=== PATIENT | female | born 1990 | race Caucasian/White ===

== ENCOUNTER 2016-07-18 21:48 | Inpatient (IN) | payer BC ==
[~2016-07-18] VITALS: Ht 170.2 cm; Wt 51.7 kg
[2016-07-19] VITALS: BP 103/61; PULSE 82; RESP 18; Ht 170.2 cm; Wt 51.7 kg
[2016-07-19] MEDS ORDERED: ACETAMINOPHEN 325 MG TAB PO PRN (00:30)
[2016-07-19 02:18] LABS: ADD SCAN DIFF NO
[2016-07-19 02:20] LABS: BASOPHILS % 0.7 % (0.0-2.0); EOSINOPHILS # 0.2 10^3/ul (0.0-0.5); EOSINOPHILS % 3.2 % (0.0-7.0); HEMATOCRIT 37.5 % (37.0-47.0); HEMOGLOBIN 12.4 g/dl (12.0-16.0); LYMPHOCYTES # 2.1 10^3/ul (0.8-2.9); LYMPHOCYTES % 36.3 % (15.0-51.0); MEAN CORPUSCULAR HEMOGLOBIN 27.6 pg (29.0-33.0); MEAN CORPUSCULAR HGB CONC 33.1 g/dl (32.0-37.0); MEAN CORPUSCULAR VOLUME 83.3 fl (82.0-101.0); MEAN PLATELET VOLUME 10.1 fl (7.4-10.4); MONOCYTE # 0.5 10^3/ul (0.3-0.9); MONOCYTES % 7.6 % (0.0-11.0); NEUTROPHIL # 3.1 10^3/ul (1.6-7.5); NEUTROPHILS % 51.9 % (39.0-77.0); PLATELET COUNT 232 10^3/UL (140-415); RED CELL DISTRIBUTION WIDTH 12.6 % (11.5-14.5); WHITE BLOOD COUNT 5.9 10^3/ul (4.8-10.8)
[2016-07-19 02:37] LABS: ALBUMIN 4.1 g/dl (3.3-4.9)
[2016-07-19 02:38] LABS: POTASSIUM 3.4 mmol/L (3.5-5.1)
[2016-07-19 02:40] LABS: ALBUMIN/GLOBULIN RATIO 1.36; BILIRUBIN,INDIRECT 0.5 mg/dl (0-1.1); BILIRUBIN,TOTAL 0.5 mg/dl (0.2-1.3); CREATININE 0.76 mg/dl (0.44-1.00); TOTAL PROTEIN 7.1 g/dl (6.1-8.1)
[2016-07-19 02:41] LABS: CALCIUM 8.8 mg/dl (8.4-10.2); MAGNESIUM 1.9 mg/dl (1.7-2.5)
[2016-07-19] MEDS: ONDANSETRON 4 MG INJ IV PRN ×2 (03:23→18:19)
[2016-07-19] MEDS: PANTOPRAZOLE 40 MG INJ IV SCH (06:44)
[2016-07-19 08:01] VITALS: BP 90/50; RESP 18
--- NOTE | 2016-07-19 11:29 | CONS ---
Date/Time of Note Date/Time of Note DATE: 07/19/16 TIME: 11:17 Assessment/Plan Assessment/Plan Additional Assessment/Plan Assessment * Hematemesis * Depression Plan * EGD risks and benefit explained to patient and agreed with the planned procedure * PPI Consultation Date/Type/Reason Admit Date/Time July 18, 2016 at 23:34 Date of Consultation: July 19, 2016 Type of Consultation: Gastroenterology Reason for Consultation hematemesis Referring Provider: KYUNG LAMA Hx of Present Illness 25 year old female with history of depression ,transferred to our facility because of insurance issues from [facility] complaining of hematemesis.Present condition apparently started 3 days prior to admission as hematemesis approximately 1/3 glass,with associated vague abdominal pain.She claims that this started after starting taking Zoloft .She denies hematochezia, shortness of breath ,chest pain or bloating nor satiety. Present hemoglobin is 12.4,potassium 3.4,AST 21,ALT 31,alkaline phosphatase 36.No hematemesis nor abdominal pain Constitutional: improved, no complaints Eyes: no complaints ENT: no complaints Respiratory: no complaints Cardiovascular: no complaints Gastrointestinal: blood, flatus, nausea, vomiting Genitourinary: no complaints Musculoskeletal: no complaints Skin: no complaints Neurologic: no complaints Endocrine: no complaints Lymphatic: no complaints Psychological: nl mood/affect, no complaints Immunologic: no complaints Past Medical History Medical History: other (Depression) Past Surgical History Past Surgical Hx: no surgical history Family History Significant Family History: no pertinent family hx Social History Smoking Status: Never smoker Exam/Review of Systems Vital Signs Vitals Vital Signs Date Time Temp Pulse Resp B/P Pulse Ox O2 Delivery O2 Flow Rate FiO2 07/19/16 08:01 98.0 70 18 90/50 100 Intake and Output 07/18/16 07/18/16 07/19/16 15:00 23:00 07:00 Intake Total 480 ml Output Total 500 ml Balance -20 ml Exam Constitutional: alert, oriented, well developed Psych: nl mood/affect Head: atraumatic, normocephalic Eyes: PERRL, nl conjunctiva, nl sclera Neck: non-tender, supple Respiratory: clear to auscultation, normal air movement Cardiovascular: nl pulses, regular rate and rhythm Gastrointestinal: nl liver, spleen, non-tender, soft Musculoskeletal: nl extremities to inspection, nl gait and stance Extremities: normal pulses Neurological: nl mental status, nl speech, nl strength Skin: nl turgor, No rash or lesions Lymph: nl lymph nodes Results Result Diagram: 07/19/1615107/19/16151 Results 24 hrs Laboratory Tests Test 07/19/16 01:52 White Blood Count 5.9 Red Blood Count 4.50 Hemoglobin 12.4 Hematocrit 37.5 Mean Corpuscular Volume 83.3 Mean Corpuscular Hemoglobin 27.6 L Mean Corpuscular Hemoglobin Concent 33.1 Red Cell Distribution Width 12.6 Platelet Count 232 Mean Platelet Volume 10.1 Neutrophils % 51.9 Lymphocytes % 36.3 Monocytes % 7.6 Eosinophils % 3.2 Basophils % 0.7 Nucleated Red Blood Cells % 0.0 Neutrophils # 3.1 Lymphocytes # 2.1 Monocytes # 0.5 Eosinophils # 0.2 Basophils # 0.0 Nucleated Red Blood Cells # 0.0 Sodium Level 139 Potassium Level 3.4 L Chloride Level 110 Carbon Dioxide Level 26 Anion Gap 6 L Blood Urea Nitrogen 12 Creatinine 0.76 Glucose Level 88 Calcium Level 8.8 Phosphorus Level 3.5 Magnesium Level 1.9 Total Bilirubin 0.5 Direct Bilirubin 0.00 Indirect Bilirubin 0.5 Aspartate Amino Transf (AST/SGOT) 21 Alanine Aminotransferase (ALT/SGPT) 31 Alkaline Phosphatase 36 L Total Protein 7.1 Albumin 4.1 Globulin 3.00 Albumin/Globulin Ratio 1.36 Medications Medications Current Medications Ondansetron HCl (Zofran Inj) 4 mg Q6H PRN IV NAUSEA AND/OR VOMITING Last administered on 07/19/16 03:23; Admin Dose 4 MG; Start 07/19/16 at 00:30 Acetaminophen (Tylenol Tab) 650 mg Q6H PRN PO PAIN AND OR ELEVATED TEMP; Start 07/19/16 at 00:30 Pantoprazole (Protonix Iv) 40 mg DAILY@06 IV Last administered on 07/19/16 06: 44; Admin Dose 40 MG; Start 07/19/16 at 06:00 Morphine Sulfate (morphine) 2 mg Q4H PRN IV pain; Start 07/19/16 at 00:30 MONSE TROY MD July 19, 2016 11:27
[2016-07-19] MEDS ORDERED: POTASSIUM CHLORIDE 250 ML IVPB ONE (18:00)
[2016-07-19] MEDS: morphine 2 MG INJ IV PRN (18:19)
[2016-07-19 19:39] VITALS: BP 108/68; RESP 16
[2016-07-20] VITALS (14 sets, daily range): BP systolic 95–118; BP diastolic 52–67; PULSE 26–86; RESP 14–29
[2016-07-20] MEDS: morphine 2 MG INJ IV PRN (01:46)
[2016-07-20 05:18] LABS: ADD SCAN DIFF NO
[2016-07-20 05:22] LABS: BASOPHILS % 0.6 % (0.0-2.0); EOSINOPHILS # 0.2 10^3/ul (0.0-0.5); EOSINOPHILS % 2.9 % (0.0-7.0); HEMATOCRIT 37.1 % (37.0-47.0); HEMOGLOBIN 12.1 g/dl (12.0-16.0); LYMPHOCYTES # 2.2 10^3/ul (0.8-2.9); LYMPHOCYTES % 33.7 % (15.0-51.0); MEAN CORPUSCULAR HEMOGLOBIN 27.5 pg (29.0-33.0); MEAN CORPUSCULAR HGB CONC 32.6 g/dl (32.0-37.0); MEAN CORPUSCULAR VOLUME 84.3 fl (82.0-101.0); MEAN PLATELET VOLUME 10.1 fl (7.4-10.4); MONOCYTE # 0.5 10^3/ul (0.3-0.9); MONOCYTES % 7.2 % (0.0-11.0); NEUTROPHIL # 3.6 10^3/ul (1.6-7.5); NEUTROPHILS % 55.3 % (39.0-77.0); PLATELET COUNT 247 10^3/UL (140-415); RED CELL DISTRIBUTION WIDTH 12.7 % (11.5-14.5); WHITE BLOOD COUNT 6.5 10^3/ul (4.8-10.8)
[2016-07-20 05:57] LABS: ALBUMIN 3.6 g/dl (3.3-4.9); ALBUMIN/GLOBULIN RATIO 1.24; BILIRUBIN,INDIRECT 0.1 mg/dl (0-1.1); BILIRUBIN,TOTAL 0.1 mg/dl (0.2-1.3); CALCIUM 8.9 mg/dl (8.4-10.2); CREATININE 0.88 mg/dl (0.44-1.00); POTASSIUM 4.4 mmol/L (3.5-5.1); TOTAL PROTEIN 6.5 g/dl (6.1-8.1)
[2016-07-20] MEDS: PANTOPRAZOLE 40 MG INJ IV SCH (06:05)
--- NOTE | 2016-07-20 10:22 | PN ---
Date/Time of Note Date/Time of Note DATE: 07/20/16 TIME: 10:19 Assessment/Plan VTE Prophylaxis VTE Prophylaxis Intervention: SCD's Lines/Catheters IV C[facility] Type [facility]): Peripheral IV Urinary Cath still in place: No Assessment/Plan Chief Complaint/Hosp Course 25 yo F with pmhx anxiety presents with 1m of hematemesis after recently starting an SSRI #hemoptysis: etio unclear, GI origin v other GI following. EGD today. If nondiagnostic will expand workup IV PPI pending GI eval NPO pending EGD plan of care dw pt and her significant other Problems: Subjective 24 Hr Interval Summary Free Text/Dictation Patient seen this AM with her significant other. No hematemesis this AM but had some yesterday. Anxious for her EGD. States the hematemesis began shortly after SSRI was started. Reports intermittent diffuse abd cramping, no focal pain or tenderness. Exam/Review of Systems Vital Signs Vitals Vital Signs Date Time Temp Pulse Resp B/P Pulse Ox O2 Delivery O2 Flow Rate FiO2 07/20/16 07:59 98.2 72 14 95/52 97 Intake and Output 07/19/16 07/19/16 07/20/16 15:00 23:00 07:00 Intake Total 1000 ml 870 ml Balance 1000 ml 870 ml Exam anxious, laying in bed no mrgf lungs clear abd soft, ntnd no le edema no rashes responds to questions appropriately Results Result Diagram: 07/20/16 0445 07/20/16 0445 Results 24 hrs Laboratory Tests Test 07/20/16 04:45 White Blood Count 6.5 Red Blood Count 4.40 Hemoglobin 12.1 Hematocrit 37.1 Mean Corpuscular Volume 84.3 Mean Corpuscular Hemoglobin 27.5 L Mean Corpuscular Hemoglobin Concent 32.6 Red Cell Distribution Width 12.7 Platelet Count 247 Mean Platelet Volume 10.1 Neutrophils % 55.3 Lymphocytes % 33.7 Monocytes % 7.2 Eosinophils % 2.9 Basophils % 0.6 Nucleated Red Blood Cells % 0.0 Neutrophils # 3.6 Lymphocytes # 2.2 Monocytes # 0.5 Eosinophils # 0.2 Basophils # 0.0 Nucleated Red Blood Cells # 0.0 Sodium Level 143 Potassium Level 4.4 Chloride Level 108 Carbon Dioxide Level 25 Anion Gap 14 # Blood Urea Nitrogen 13 Creatinine 0.88 Glucose Level 96 Calcium Level 8.9 Total Bilirubin 0.1 L Direct Bilirubin 0.00 Indirect Bilirubin 0.1 Aspartate Amino Transf (AST/SGOT) 17 Alanine Aminotransferase (ALT/SGPT) 25 Alkaline Phosphatase 30 L Total Protein 6.5 Albumin 3.6 Globulin 2.90 Albumin/Globulin Ratio 1.24 Medications Medications Current Medications Ondansetron HCl (Zofran Inj) 4 mg Q6H PRN IV NAUSEA AND/OR VOMITING Last administered on 07/19/16 18:19; Admin Dose 4 MG; Start 07/19/16 at 00:30 Acetaminophen (Tylenol Tab) 650 mg Q6H PRN PO PAIN AND OR ELEVATED TEMP; Start 07/19/16 at 00:30 Pantoprazole (Protonix Iv) 40 mg DAILY@06 IV Last administered on 07/20/16 06: 05; Admin Dose 40 MG; Start 07/19/16 at 06:00 Morphine Sulfate (morphine) 2 mg Q4H PRN IV pain Last administered on 01:46; Admin Dose 2 MG; Start 07/19/16 at 00:30 CARLITA BARROS MD July 20, 2016 10:22
[2016-07-20] MEDS ORDERED: MIDAZOLAM 1 MG/ML 2 ML INJ ONE (11:14)
[2016-07-20] MEDS ORDERED: PROPOFOL 20 ML ONE (11:14)
[2016-07-20] MEDS ORDERED: FENTAnyl 50 MCG/ML VIAL ONE (11:14)
[2016-07-20] MEDS ORDERED: LIDOCAINE 2% (SDV) 5 ML INJ ONE (11:14)
[2016-07-20] MEDS: ONDANSETRON 4 MG INJ IV PRN ×2 (13:53→20:52)
--- NOTE | 2016-07-20 18:35 | GILP ---
DATE OF PROCEDURE: PROCEDURE: ESOPHAGOGASTRODUODENOSCOPY WITH BIOPSIES. HISTORY AND INDICATIONS: The patient is being evaluated for nausea, vomiting, hematemesis. PREMEDICATION: Monitored anesthesia care by anesthesiologist. SURGEON: Monse Harris MD. INSTRUMENT USED: Olympus upper endoscope. TECHNIQUE: After informed consent, with the patient/relatives understanding the procedure, its indic ations, potential risks and complications, including but not limited to: allergic reaction, bleeding , perforation or infection, and after all pertinent questions were answered to the patients satisfac tion, the patient/relatives signed witnessed informed consent. Following this, premedication was administered slowly IV push under careful cardiovascular and respi ratory monitoring with pulse oximetry, automatic blood pressure and combination welder. Once the sedative effect was achieved the patient was place in the left lateral decubitus, the panen doscope was introduced and advanced under visual control. Careful examination of the upper gastrointestinal tract, both on insertion as well as withdrawal of the instrument disclosed the following findings: ESOPHAGUS: The distal esophagus appears mild, with erythema and edema of the mucosa at the EG junct ion. STOMACH: Upon entrance to the stomach air was insufflated, the gastric armendariz distended normally. The re is erythema and edema of the mucosa of a mild degree. Biopsies were obtained to rule out H. pylo ri infection. PYLORUS: The pylorus appears patent and within normal limits, with no evidence of gastric outlet obs truction. DUODENUM: The duodenal mucosa was carefully examined in the duodenal bulb as well as the second port ion of the duodenum and appears unremarkable with no evidence of duodenitis, ulcer or neoplasm. The instrument was then withdrawn, the patient tolerated the procedure well and was transfer out of the endoscopy suite awake, and in good condition to continue recovery under observation IMPRESSION: 1. Mild distal esophagitis. 2. Mild gastritis. Rule out H. pylori infection, biopsies obtained. PLAN: The patient will be treated with PPIs. Diet will be advanced, ____ appears safe for outpatie nt followup. Dictated By: MONSE HARRIS MS/NTS Conf#: [id number] DID#: [id number]
[2016-07-21] MEDS: PANTOPRAZOLE 40 MG INJ IV SCH (05:26)
--- NOTE | 2016-07-21 07:15 | HP ---
DATE OF ADMISSION: 07/18/2016 TIME SEEN: 4 a.m. CHIEF COMPLAINT: Vomiting blood. HISTORY OF PRESENT ILLNESS: The patient is a 25-year-old female with a history of mitral valve prol apse and psych disorder with at least bipolar, who initially went to an outside hospital complaining of intractable nausea and hematemesis. She stated she started taking different psych medications a nd shortly after she started throwing up, and she has not stopped since. She has had a total of abo ut 4 episodes of hematemesis. At one time she said that she was having 1/2 a cup full of blood (whe n she quantified this, it seems like she had 4 or 5 ounces of blood at least on 1 episode so far of hematemesis). She complains of some weakness, otherwise she does not have any other complaints. When the patient was directly admitted here, blood pressure was 103/61, heart rate 82, respiratory r ate 18, temperature 98, oxygen saturation 97% on room air, and she has not had any episodes of hemat emesis worsen here. DICTATION ENDS HERE Dictated By: BEN SWANSON/ELOISA Conf#: [id number] DID#: [id number]
[2016-07-21 07:54] VITALS: BP 91/51; RESP 18
--- NOTE | 2016-07-21 12:35 | DS ---
Date/Time of Note Date/Time of Note DATE: 07/21/16 TIME: 12:32 Discharge Summary Admission/Discharge Info Admit Date/Time July 18, 2016 at 23:34 Discharge Date/Time Final Diagnosis esophagitis and gastritis Patient Condition: Good Consults Gastroenterology/Dr Harris Procedures EGD 07.20 IMPRESSION: 1. Mild distal esophagitis. 2. Mild gastritis. Rule out H. pylori infection, biopsies obtained. Hx of Present Illness 25 yo F with pmhx anxiety presents with 1m of hematemesis after recently starting an SSRI Hospital Course Pt seen by GI, underwent EGD 07.20 notable for esophagitis and gastritis. Pt advised to start BID PPI and f/u with GI as outpatient and to discuss anxiety/ depression meds with her mental health provider. Home Meds No Active Prescriptions or Reported Meds Follow-up Plan GI within 4 weeks (Dr Harris) Primary Care Provider Rafia Monsivais Time spent on discharge: > 30 minutes Pending Labs path from gastric biopsy CARLITA BARROS MD July 21, 2016 12:35
[2016-07-21] MEDS ORDERED: PANT40TA4 PO (12:38)
--- NOTE | 2016-07-21 16:16 | PN ---
Date/Time of Note Date/Time of Note DATE: 07/21/16 TIME: 16:12 Assessment/Plan VTE Prophylaxis VTE Prophylaxis Intervention: SCD's Lines/Catheters IV [facility] Saline Lock Urinary Cath still in place: No Assessment/Plan Assessment/Plan Assessment * EGD Mild distal esophagitis. . Mild gastritis. Rule out H. pylori infection, biopsies obtained. Plan * stable outpatient management * PPI for 2 weeks Subjective 24 Hr Interval Summary Free Text/Dictation * Course reviewed with RN * Patient seen and examined * EGD Mild distal esophagitis. . Mild gastritis. Rule out H. pylori infection, biopsies obtained. Exam/Review of Systems Vital Signs Vitals Vital Signs Date Time Temp Pulse Resp B/P Pulse Ox O2 Delivery O2 Flow Rate FiO2 07/21/16 07:54 98.0 68 18 91/51 97 07/20/16 14:30 Room Air Intake and Output 07/20/16 07/20/16 07/21/16 15:00 23:00 07:00 Intake Total 50 ml 1040 ml Balance 50 ml 1040 ml Exam Constitutional: alert, oriented Neck: non-tender, supple Respiratory: clear to auscultation, normal air movement Cardiovascular: nl pulses, regular rate and rhythm Gastrointestinal: non-tender, soft Musculoskeletal: nl extremities to inspection, nl gait and stance Extremities: normal pulses Results Result Diagram: 07/20/16 0445 07/20/16 0445 Medications Medications Current Medications Ondansetron HCl (Zofran Inj) 4 mg Q6H PRN IV NAUSEA AND/OR VOMITING Last administered on 07/20/16 20:52; Admin Dose 4 MG; Start 07/19/16 at 00:30 Acetaminophen (Tylenol Tab) 650 mg Q6H PRN PO PAIN AND OR ELEVATED TEMP; Start 07/19/16 at 00:30 Morphine Sulfate (morphine) 2 mg Q4H PRN IV pain Last administered on 01:46; Admin Dose 2 MG; Start 07/19/16 at 00:30 Pantoprazole (Protonix Tab) 40 mg BID@06,18 PO ; Start 07/21/16 at 18:00 MONSE TROY MD July 21, 2016 16:16
[2016-07-21] MEDS ORDERED: PANTOPRAZOLE (EC) 40 MG TAB PO SCH (18:00)
== END 2016-07-21 15:12 | disposition home or self-care (01) | DRG 392 ==
LOC: MS1 23:34
PROVIDERS: ADMIT Internal Medicine; ATTEND Internal Medicine
PROC: 0DB68ZX Excision of Stomach, Via Natural or Artificial Opening Endoscopic, Diagnostic (ICD-10-PCS; principal; 2016-07-20 11:00)
DX: K20.9 Esophagitis, unspecified (principal); K92.0 Hematemesis; K29.70 Gastritis, unspecified, without bleeding
CPT/HCPCS: 80053; 83735; 84100; 85025; 88305; C9113; J2250; J2270; J2405; J3010; J3480